=== PATIENT | female | born 1970 | race Caucasian/White ===

== ENCOUNTER 2016-11-06 12:36 | Emergency (ER) | payer OTHER ==
[~2016-11-06] VITALS: Ht 165.1 cm; Wt 84.1 kg
[~2016-11-06 12:36] MED LIST: ALPR0.5T8 PO; HYDR25TA PO; TRAZ150T85 PO; VENL25TA47 PO
[2016-11-06] MEDS ORDERED: METF500T4 PO (12:44)
[2016-11-06 12:52] LABS: GLUCOSE,POINT OF CARE 104 MG/DL (70-110)
[2016-11-06] MEDS ORDERED: HYDROCODONE/ACETAMINOPHEN 10-325 MG TABLET PO ONE (13:45)
[2016-11-06 15:11] VITALS: BP 129/79
== END 2016-11-06 15:32 | disposition home or self-care (01) ==
LOC: EMS 12:37
DX: S73.102A Unspecified sprain of left hip, initial encounter (principal); M79.89 Other specified soft tissue disorders; I10 Essential (primary) hypertension; E11.9 Type 2 diabetes mellitus without complications; F17.210 Nicotine dependence, cigarettes, uncomplicated; X58.XXXA Exposure to other specified factors, initial encounter; Y93.89 Activity, other specified; Y92.89 Other specified places as the place of occurrence of the external cause; Y99.8 Other external cause status
CPT/HCPCS: 73503; 82962; 93970; 99284

== ENCOUNTER 2016-12-10 08:09 | Emergency (ER) | payer OTHER ==
[~2016-12-10] VITALS: Ht 165.1 cm; Wt 83.5 kg
[~2016-12-10 08:09] MED LIST changes: +METF500T4 PO
[2016-12-10] MEDS ORDERED: MEDR4 PO (08:15)
[2016-12-10 08:22] LABS: GLUCOSE,POINT OF CARE 152 MG/DL (70-110)
[2016-12-10 08:28] VITALS: BP 135/84
[2016-12-10] MEDS ORDERED: OxyCODONE HCL/ACETAMINOPHEN 5-325 MG TABLET PO ONE (09:00)
== END 2016-12-10 09:07 | disposition home or self-care (01) ==
LOC: EMS 08:10
DX: M54.16 Radiculopathy, lumbar region (principal); F31.9 Bipolar disorder, unspecified; I10 Essential (primary) hypertension; E11.9 Type 2 diabetes mellitus without complications; F20.9 Schizophrenia, unspecified; F41.9 Anxiety disorder, unspecified; F17.210 Nicotine dependence, cigarettes, uncomplicated
CPT/HCPCS: 82962; 99283; 99406

== ENCOUNTER 2017-12-30 15:18 | Emergency (ER) | payer OTHER ==
[~2017-12-30] VITALS: Ht 165.1 cm; Wt 81.4 kg
[~2017-12-30 15:18] MED LIST changes: +MEDR4 PO; -METF500T4 PO; +METF500T6 PO; +TRAZ150T79 PO; -TRAZ150T85 PO
[2017-12-30 15:24] VITALS: BP 144/86
[2017-12-30 15:34] LABS: GLUCOSE,POINT OF CARE 144 MG/DL (70-110)
== END 2017-12-30 17:05 | disposition left against medical advice (07) ==
LOC: EMS 15:19
DX: M54.5 Low back pain (principal); R22.0 Localized swelling, mass and lump, head; F31.9 Bipolar disorder, unspecified; F41.9 Anxiety disorder, unspecified; E11.9 Type 2 diabetes mellitus without complications; F20.9 Schizophrenia, unspecified; F17.210 Nicotine dependence, cigarettes, uncomplicated; Z53.21 Procedure and treatment not carried out due to patient leaving prior to being seen by health care provider

== ENCOUNTER 2018-02-28 22:19 | Emergency (ER) | payer OTHER ==
[~2018-02-28] VITALS: Ht 165.1 cm; Wt 81.4 kg
[~2018-02-28 22:19] MED LIST changes: -MEDR4 PO; -METF500T6 PO
[2018-02-28] MEDS ORDERED: METF-960 PO (22:28)
[2018-02-28] MEDS ORDERED: PERCT10 PO (22:28)
[2018-02-28 22:33] LABS: GLUCOSE,POINT OF CARE 110 MG/DL (70-110)
[2018-03-01] MEDS ORDERED: CefTRIAXone SODIUM 1 GM/VIAL IM ONE (01:00)
[2018-03-01] MEDS ORDERED: KETOROLAC TROMETHAMINE 60 MG/2 ML VIAL IM ONE (01:00)
[2018-03-01] MEDS ORDERED: LIDOCAINE/PF 1% 2 ML VIAL IM ONE (01:00)
[2018-03-01 01:15] VITALS: BP 130/74
== END 2018-03-01 01:15 | disposition home or self-care (01) ==
LOC: EMS 22:21
DX: L02.412 Cutaneous abscess of left axilla (principal); M54.42 Lumbago with sciatica, left side; F41.9 Anxiety disorder, unspecified; F31.9 Bipolar disorder, unspecified; E11.9 Type 2 diabetes mellitus without complications; I10 Essential (primary) hypertension; F20.9 Schizophrenia, unspecified; F17.210 Nicotine dependence, cigarettes, uncomplicated; Z90.49 Acquired absence of other specified parts of digestive tract; Z90.710 Acquired absence of both cervix and uterus; Z98.51 Tubal ligation status; Z79.84 Long term (current) use of oral hypoglycemic drugs
CPT/HCPCS: 82962; 99283; J0696; J1885; J3490; 99284

== ENCOUNTER 2018-12-19 14:37 | Emergency (ER) | payer OTHER ==
[~2018-12-19] VITALS: Ht 165.1 cm; Wt 90.9 kg
[~2018-12-19 14:37] MED LIST changes: +METF-960 PO; +PERCT10 PO; -TRAZ150T79 PO
[2018-12-19] MEDS ORDERED: LISI-661 PO (14:47)
[2018-12-19] MEDS ORDERED: ASPI81TA39 PO (14:47)
[2018-12-19 16:15] LABS: BASOPHILS % (AUTO) 0.5 % (0.0-2.0); EOSINOPHILS % (AUTO) 1.9 % (1.0-6.0); HEMATOCRIT 42.2 % (36-46); HEMOGLOBIN 13.6 g/dL (12.0-16.0); LYMPHOCYTES # (AUTO) 2.9 K/uL (1.0-4.8); LYMPHOCYTES % (AUTO) 38.9 % (22.0-44.0); MEAN CORPUSCULAR HEMOGLOBIN 28.9 pg (26.0-34.0); MEAN CORPUSCULAR HGB CONC 32.3 G/dL (31.0-37.0); MEAN CORPUSCULAR VOLUME 90 fL (80-100); MONOCYTES # (AUTO) 0.5 K/uL (0.1-1.0); MONOCYTES % (AUTO) 7.1 % (2.0-9.0); NEUTROPHILS # (AUTO) 3.9 K/uL (1.8-7.7); NEUTROPHILS % (AUTO) 51.6 % (40.0-70.0); PLATELET COUNT (AUTO) 258 K/uL (150-450); RED BLOOD CELL COUNT(AUTO) 4.72 MIL/uL (4.00-5.20); RED CELL DISTRIBUTION WIDTH 14.7 % (11.5-14.5)
[2018-12-19 16:28] LABS: ANION GAP 12 mmol/L (8-16); CARBON DIOXIDE 24 mmol/L (22-29); CHLORIDE 103 mmol/L (98-107); CREATININE 1.18 mg/dL (0.60-1.30); GLOMERULAR FILTR. RATE CALC 49 mL/min (>60); GLUCOSE,RANDOM 121 mg/dL (70-110); POTASSIUM 3.3 mmol/L (3.5-5.1); SODIUM SERUM 139 mmol/L (136-145); UREA NITROGEN, BLOOD 11 mg/dL (7-18)
[2018-12-19 16:33] LABS: ALANINE AMINOTRANSFERASE 22 U/L (12-78); ALBUMIN 3.3 g/dL (3.4-5.0); ALKALINE PHOSPHATASE 80 U/L (46-116); ASPARTATE AMINOTRANSFERASE 26 U/L (15-37); BILIRUBIN,TOTAL 0.2 mg/dL (0.1-1.0); TOTAL PROTEIN, SERUM 6.7 g/dL (6.4-8.2)
[2018-12-19 16:45] LABS: B-TYPE NATRIURETIC PEPTIDE < 5 pg/mL (0-100)
[2018-12-19 17:10] LABS: GLUCOSE,POINT OF CARE 127 MG/DL (70-110)
[2018-12-19] MEDS ORDERED: POTASSIUM CHLORIDE 20 MEQ ER TABLET PO ONE (17:30)
[2018-12-19] MEDS ORDERED: KETOROLAC TROMETHAMINE 30 MG/ML VIAL IM ONE (17:30)
[2018-12-19] MEDS ORDERED: ALPR1TAB7 PO (17:33)
[2018-12-19 17:52] VITALS: BP 118/87
== END 2018-12-19 17:55 | disposition home or self-care (01) ==
LOC: EMS 14:37
DX: R60.0 Localized edema (principal); E87.6 Hypokalemia; M79.661 Pain in right lower leg; M79.662 Pain in left lower leg; I10 Essential (primary) hypertension; E11.9 Type 2 diabetes mellitus without complications; F31.9 Bipolar disorder, unspecified; F20.9 Schizophrenia, unspecified; F41.9 Anxiety disorder, unspecified; F17.210 Nicotine dependence, cigarettes, uncomplicated; Z79.82 Long term (current) use of aspirin; Z79.84 Long term (current) use of oral hypoglycemic drugs; Z79.899 Other long term (current) drug therapy
CPT/HCPCS: 36415; 80053; 82962; 83880; 85025; 93970; 96372; 99284; 99406; J1885

== ENCOUNTER 2020-05-12 08:07 | Emergency (ER) | payer OTHER ==
[~2020-05-12] VITALS: Ht 175.3 cm; Wt 100.0 kg
[~2020-05-12 08:07] MED LIST changes: -ALPR0.5T8 PO; +ALPR1TAB7 PO; +ASPI81TA39 PO; +HYDR-1475 PO; -HYDR25TA PO; +LISI-661 PO; -PERCT10 PO; -VENL25TA47 PO
[2020-05-12 09:47] LABS: BASOPHILS % (AUTO) 0.2 % (0.0-2.0); HEMATOCRIT 39.8 % (36-46); HEMOGLOBIN 12.8 g/dL (12.0-16.0); LYMPHOCYTES # (AUTO) 3.2 K/uL (1.0-4.8); LYMPHOCYTES % (AUTO) 43.4 % (22.0-44.0); MEAN CORPUSCULAR HEMOGLOBIN 29.1 pg (26.0-34.0); MEAN CORPUSCULAR HGB CONC 32.2 G/dL (31.0-37.0); MEAN CORPUSCULAR VOLUME 90 fL (80-100); MONOCYTES # (AUTO) 0.4 K/uL (0.1-1.0); MONOCYTES % (AUTO) 5.2 % (2.0-9.0); NEUTROPHILS # (AUTO) 3.6 K/uL (1.8-7.7); NEUTROPHILS % (AUTO) 49.2 % (40.0-70.0); PLATELET COUNT (AUTO) 244 K/uL (150-450); RED BLOOD CELL COUNT(AUTO) 4.41 MIL/uL (4.00-5.20); RED CELL DISTRIBUTION WIDTH 14.3 % (11.5-14.5)
[2020-05-12 10:03] LABS: ANION GAP 3 mmol/L (8-16); CALCIUM, TOTAL 8.4 mg/dL (8.8-10.5); CARBON DIOXIDE 26 mmol/L (22-29); CHLORIDE 107 mmol/L (98-107); CREATININE 0.85 mg/dL (0.60-1.30); GLOMERULAR FILTR. RATE CALC > 60 mL/min (>60); GLUCOSE,RANDOM 128 mg/dL (70-110); POTASSIUM 3.8 mmol/L (3.5-5.1); SODIUM SERUM 136 mmol/L (136-145); UREA NITROGEN, BLOOD 6 mg/dL (7-18)
[2020-05-12 10:07] LABS: ALANINE AMINOTRANSFERASE 17 U/L (12-78); ALKALINE PHOSPHATASE 79 U/L (46-116); ASPARTATE AMINOTRANSFERASE 13 U/L (15-37); BILIRUBIN,TOTAL 0.2 mg/dL (0.1-1.0); TOTAL PROTEIN, SERUM 6.7 g/dL (6.4-8.2)
[2020-05-12 10:10] LABS: B-TYPE NATRIURETIC PEPTIDE 6 pg/mL (0-100)
[2020-05-12 10:33] VITALS: BP 128/89
== END 2020-05-12 11:13 | disposition home or self-care (01) ==
LOC: EMS 08:09
DX: R60.0 Localized edema (principal); F41.9 Anxiety disorder, unspecified; I10 Essential (primary) hypertension; E11.319 Type 2 diabetes mellitus with unspecified diabetic retinopathy without macular edema; F17.210 Nicotine dependence, cigarettes, uncomplicated; F12.90 Cannabis use, unspecified, uncomplicated; Z90.49 Acquired absence of other specified parts of digestive tract; Z90.710 Acquired absence of both cervix and uterus
CPT/HCPCS: 93970

== ENCOUNTER 2020-05-31 13:31 | Emergency (ER) | payer OTHER ==
[~2020-05-31] VITALS: Ht 167.6 cm; Wt 92.7 kg
[~2020-05-31 13:31] MED LIST changes: -METF-960 PO
[2020-05-31 14:45] LABS: BASOPHILS % (AUTO) 0.7 % (0.0-2.0); EOSINOPHILS % (AUTO) 3.1 % (1.0-6.0); HEMATOCRIT 41.4 % (36-46); HEMOGLOBIN 13.5 g/dL (12.0-16.0); LYMPHOCYTES # (AUTO) 2.8 K/uL (1.0-4.8); LYMPHOCYTES % (AUTO) 39.3 % (22.0-44.0); MEAN CORPUSCULAR HEMOGLOBIN 29.2 pg (26.0-34.0); MEAN CORPUSCULAR HGB CONC 32.5 G/dL (31.0-37.0); MEAN CORPUSCULAR VOLUME 90 fL (80-100); MONOCYTES # (AUTO) 0.4 K/uL (0.1-1.0); NEUTROPHILS # (AUTO) 3.6 K/uL (1.8-7.7); NEUTROPHILS % (AUTO) 50.9 % (40.0-70.0); PLATELET COUNT (AUTO) 284 K/uL (150-450); RED BLOOD CELL COUNT(AUTO) 4.61 MIL/uL (4.00-5.20)
[2020-05-31 14:55] LABS: ANION GAP 8 mmol/L (8-16); CALCIUM, TOTAL 8.7 mg/dL (8.8-10.5); CARBON DIOXIDE 27 mmol/L (22-29); CHLORIDE 108 mmol/L (98-107); GLOMERULAR FILTR. RATE CALC > 60 mL/min (>60); GLUCOSE,RANDOM 85 mg/dL (70-110); POTASSIUM 3.6 mmol/L (3.5-5.1); SODIUM SERUM 143 mmol/L (136-145); UREA NITROGEN, BLOOD 9 mg/dL (7-18)
[2020-05-31 15:08] LABS: ALANINE AMINOTRANSFERASE 18 U/L (12-78); ALBUMIN 2.9 g/dL (3.4-5.0); ALKALINE PHOSPHATASE 66 U/L (46-116); ASPARTATE AMINOTRANSFERASE 10 U/L (15-37); BILIRUBIN,TOTAL 0.2 mg/dL (0.1-1.0); TOTAL PROTEIN, SERUM 6.4 g/dL (6.4-8.2)
[2020-05-31 17:45] VITALS: BP 124/88
== END 2020-05-31 18:00 | disposition home or self-care (01) ==
LOC: EMS 13:33
DX: F41.9 Anxiety disorder, unspecified (principal); R06.02 Shortness of breath; R53.1 Weakness; F31.9 Bipolar disorder, unspecified; F20.9 Schizophrenia, unspecified; I10 Essential (primary) hypertension; E11.9 Type 2 diabetes mellitus without complications; F17.210 Nicotine dependence, cigarettes, uncomplicated; F12.90 Cannabis use, unspecified, uncomplicated; Z90.710 Acquired absence of both cervix and uterus; Z90.89 Acquired absence of other organs
CPT/HCPCS: 93005; 36415-L1; 36415-TC; 71045-TC

== ENCOUNTER 2020-10-21 17:40 | Emergency (ER) | payer OTHER ==
[~2020-10-21] VITALS: Ht 165.1 cm; Wt 90.9 kg
[~2020-10-21 17:40] MED LIST changes: -HYDR-1475 PO; +HYDR25TA2 PO; -LISI-661 PO; +LISI-893 PO
[2020-10-21 19:02] LABS: ANION GAP 4 mmol/L (8-16); CALCIUM, TOTAL 8.9 mg/dL (8.8-10.5); CARBON DIOXIDE 30 mmol/L (22-29); CHLORIDE 106 mmol/L (98-107); CREATININE 0.94 mg/dL (0.60-1.30); GLOMERULAR FILTR. RATE CALC > 60 mL/min (>60); GLUCOSE,RANDOM 108 mg/dL (70-110); POTASSIUM 3.8 mmol/L (3.5-5.1); SODIUM SERUM 140 mmol/L (136-145); UREA NITROGEN, BLOOD 11 mg/dL (7-18)
[2020-10-21 19:03] LABS: BASOPHILS % (AUTO) 0.5 % (0.0-2.0); EOSINOPHILS % (AUTO) 2.7 % (1.0-6.0); HEMATOCRIT 40.6 % (36-46); HEMOGLOBIN 13.4 g/dL (12.0-16.0); LYMPHOCYTES # (AUTO) 2.9 K/uL (1.0-4.8); LYMPHOCYTES % (AUTO) 44.6 % (22.0-44.0); MEAN CORPUSCULAR HEMOGLOBIN 29.2 pg (26.0-34.0); MEAN CORPUSCULAR VOLUME 89 fL (80-100); MONOCYTES # (AUTO) 0.5 K/uL (0.1-1.0); MONOCYTES % (AUTO) 8.4 % (2.0-9.0); NEUTROPHILS # (AUTO) 2.9 K/uL (1.8-7.7); NEUTROPHILS % (AUTO) 43.8 % (40.0-70.0); PLATELET COUNT (AUTO) 253 K/uL (150-450); RED BLOOD CELL COUNT(AUTO) 4.58 MIL/uL (4.00-5.20); RED CELL DISTRIBUTION WIDTH 15.2 % (11.5-14.5)
[2020-10-21 19:08] LABS: ALANINE AMINOTRANSFERASE 27 U/L (12-78); ALBUMIN 3.2 g/dL (3.4-5.0); ALKALINE PHOSPHATASE 90 U/L (46-116); ASPARTATE AMINOTRANSFERASE 15 U/L (15-37); BILIRUBIN,TOTAL 0.2 mg/dL (0.1-1.0); TOTAL PROTEIN, SERUM 7.1 g/dL (6.4-8.2)
[2020-10-21 21:05] VITALS: BP 130/87
== END 2020-10-21 21:16 | disposition home or self-care (01) ==
LOC: EMS 17:44
DX: F41.9 Anxiety disorder, unspecified (principal); R60.0 Localized edema
CPT/HCPCS: 71045; 80053; 84484; 85025; 85379; 93005; 99285; 36415-L1; 36415-TC

== ENCOUNTER 2021-02-06 09:25 | Emergency (ER) | payer OTHER ==
[~2021-02-06] VITALS: Ht 165.1 cm; Wt 80.9 kg
[2021-02-06 09:47] VITALS: BP 127/84
== END 2021-02-06 10:20 | disposition home or self-care (01) ==
LOC: EMS 09:33
DX: H60.93 Unspecified otitis externa, bilateral (principal); R51.9 Headache, unspecified; R42 Dizziness and giddiness; F41.9 Anxiety disorder, unspecified; I11.0 Hypertensive heart disease with heart failure; I50.9 Heart failure, unspecified; Z90.710 Acquired absence of both cervix and uterus; Z79.899 Other long term (current) drug therapy
CPT/HCPCS: 99283

== ENCOUNTER 2021-11-05 03:29 | Emergency (ER) | payer OTHER ==
[~2021-11-05] VITALS: Ht 175.3 cm; Wt 100.0 kg
[~2021-11-05 03:29] MED LIST changes: +ALPR-709 PO; -ALPR1TAB7 PO; +HYDR-4870 PO; -HYDR25TA2 PO
[2021-11-05 03:32] VITALS: BP 155/105
[2021-11-05] MEDS ORDERED: AMOX1TAB16 PO ×2 (04:28→14:01)
[2021-11-05] MEDS ORDERED: IBUPROFEN 400 MG TABLET PO ONE (04:30)
[2021-11-05] MEDS ORDERED: OxyCODONE HCL/ACETAMINOPHEN 5-325 MG TABLET PO ONE (04:30)
[2021-11-05] MEDS ORDERED: AMPICILLIN SODIUM/SULBACTAM NA 3 GM/VIAL IM ONE (04:30)
[2021-11-05] MEDS ORDERED: AMPICILLIN SODIUM/SULBACTAM NA 1.5 GM/VIAL IM ONE (04:30)
== END 2021-11-05 04:50 | disposition home or self-care (01) ==
LOC: EMS 03:31
DX: K02.9 Dental caries, unspecified (principal); S02.5XXA Fracture of tooth (traumatic), initial encounter for closed fracture; I11.0 Hypertensive heart disease with heart failure; I50.9 Heart failure, unspecified; E11.9 Type 2 diabetes mellitus without complications; L40.9 Psoriasis, unspecified; F41.0 Panic disorder [episodic paroxysmal anxiety]; E11.319 Type 2 diabetes mellitus with unspecified diabetic retinopathy without macular edema; Z90.710 Acquired absence of both cervix and uterus; Z98.890 Other specified postprocedural states; X58.XXXA Exposure to other specified factors, initial encounter; Y93.89 Activity, other specified; Y92.89 Other specified places as the place of occurrence of the external cause; Y99.8 Other external cause status
CPT/HCPCS: 96372; 99283; J0295

== ENCOUNTER 2022-02-15 11:00 | Emergency (ER) | payer OTHER ==
[~2022-02-15] VITALS: Ht 167.6 cm; Wt 75.0 kg
[~2022-02-15 11:00] MED LIST changes: +AMOX1TAB16 PO; -HYDR-4870 PO; +HYDR25TA2 PO
[2022-02-15 11:14] VITALS: BP 147/106
[2022-02-15 11:25] LABS: GLUCOMETER DEV NAME(LOC) ERT.5; GLUCOSE,POINT OF CARE 90 MG/DL (70-110)
[2022-02-15] MEDS ORDERED: DOXY-354 PO (12:14)
[2022-02-15] MEDS ORDERED: DOXYCYCLINE HYCLATE 100 MG TABLET PO ONE (12:15)
[2022-02-15] MEDS ORDERED: ACETAMINOPHEN 500 MG TABLET PO ONE (12:15)
[2022-02-15] MEDS ORDERED: KETOROLAC TROMETHAMINE 30 MG/ML VIAL IM ONE (12:15)
[2022-02-15] MEDS ORDERED: ACET-3385 PO (13:27)
[2022-02-15] MEDS ORDERED: IBUP-2070 PO (13:27)
== END 2022-02-15 12:25 | disposition home or self-care (01) ==
LOC: EMS 11:00
DX: L02.31 Cutaneous abscess of buttock (principal); I10 Essential (primary) hypertension; E11.319 Type 2 diabetes mellitus with unspecified diabetic retinopathy without macular edema; L40.9 Psoriasis, unspecified; F17.210 Nicotine dependence, cigarettes, uncomplicated; F12.90 Cannabis use, unspecified, uncomplicated; Z98.890 Other specified postprocedural states; Z90.49 Acquired absence of other specified parts of digestive tract; Z90.710 Acquired absence of both cervix and uterus
CPT/HCPCS: 99283; 82962; 96372; J1885

== ENCOUNTER 2022-03-02 18:36 | Emergency (ER) | payer OTHER ==
[~2022-03-02] VITALS: Ht 165.1 cm; Wt 77.3 kg
[~2022-03-02 18:36] MED LIST changes: +ACET-3385 PO; -AMOX1TAB16 PO; +DOXY-354 PO; +IBUP-2070 PO
[2022-03-02] MEDS ORDERED: FURO20 PO (19:05)
[2022-03-02] MEDS ORDERED: MAG HYDROX/AL HYDROX/SIMETH 30 ML SUSP UDCUP PO ONE (19:15)
[2022-03-02] MEDS ORDERED: FAMOTIDINE 10 MG/ML 2 ML VIAL IVP ONE (19:15)
[2022-03-02] MEDS ORDERED: KETOROLAC TROMETHAMINE 30 MG/ML VIAL IVP ONE (19:15)
[2022-03-02] MEDS ORDERED: ONDANSETRON HCL 4 MG/2 ML VIAL IVP ONE (19:15)
[2022-03-02] MEDS ORDERED: IOHEXOL 300 MG/ML 100 ML VIAL ONE (19:30)
[2022-03-02] MEDS ORDERED: SODIUM CHLORIDE 0.9% 100 ML ONE (19:30)
[2022-03-02 19:36] LABS: BASOPHILS % (AUTO) 0.3 % (0.0-2.0); EOSINOPHILS % (AUTO) 0.9 % (1.0-6.0); LYMPHOCYTES # (AUTO) 1.7 K/uL (1.0-4.8); LYMPHOCYTES % (AUTO) 23.6 % (22.0-44.0); MEAN CORPUSCULAR HEMOGLOBIN 28.8 pg (26.0-34.0); MEAN CORPUSCULAR HGB CONC 32.5 G/dL (31.0-37.0); MEAN CORPUSCULAR VOLUME 89 fL (80-100); MONOCYTES # (AUTO) 0.5 K/uL (0.1-1.0); MONOCYTES % (AUTO) 6.3 % (2.0-9.0); NEUTROPHILS # (AUTO) 4.9 K/uL (1.8-7.7); NEUTROPHILS % (AUTO) 68.9 % (40.0-70.0); PLATELET COUNT (AUTO) 236 K/uL (150-450); RED BLOOD CELL COUNT(AUTO) 4.52 MIL/uL (4.00-5.20); RED CELL DISTRIBUTION WIDTH 14.7 % (11.5-14.5)
[2022-03-02 19:44] LABS: ANION GAP 7 mmol/L (8-16); CALCIUM, TOTAL 8.2 mg/dL (8.8-10.5); CARBON DIOXIDE 26 mmol/L (22-29); CHLORIDE 103 mmol/L (98-107); CREATININE 0.82 mg/dL (0.60-1.30); GLUCOSE,RANDOM 88 mg/dL (70-110); POTASSIUM 3.5 mmol/L (3.5-5.1); SODIUM SERUM 136 mmol/L (136-145); UREA NITROGEN, BLOOD 8 mg/dL (7-18)
[2022-03-02 19:45] LABS: GLOMERULAR FILTR. RATE CALC > 60 mL/min (>60)
[2022-03-02 19:49] LABS: ALANINE AMINOTRANSFERASE 37 U/L (12-78); ALBUMIN 2.9 g/dL (3.4-5.0); ALKALINE PHOSPHATASE 94 U/L (46-116); ASPARTATE AMINOTRANSFERASE 22 U/L (15-37); BILIRUBIN,TOTAL 0.3 mg/dL (0.1-1.0); LIPASE 595 U/L (73-393); TOTAL PROTEIN, SERUM 6.4 g/dL (6.4-8.2)
[2022-03-02 19:51] LABS: COVID AG,FIA SOURCE NASOPHARYNGEAL
[2022-03-02 20:10] LABS: INFLUENZA TYPE A NEGATIVE FOR TYPE A (NEGATIVE); INFLUENZA TYPE B NEGATIVE FOR TYPE B (NEGATIVE)
[2022-03-02] MEDS ORDERED: MORPHINE SULFATE 2 MG/ML SYRINGE IVP ONE (20:45)
[2022-03-02 22:13] VITALS: BP 152/96
== END 2022-03-02 22:27 | disposition home or self-care (01) ==
LOC: EMS 18:37
DX: K52.9 Noninfective gastroenteritis and colitis, unspecified (principal); E11.319 Type 2 diabetes mellitus with unspecified diabetic retinopathy without macular edema; I10 Essential (primary) hypertension; L40.9 Psoriasis, unspecified; F17.210 Nicotine dependence, cigarettes, uncomplicated; F12.90 Cannabis use, unspecified, uncomplicated; Z90.49 Acquired absence of other specified parts of digestive tract; Z90.710 Acquired absence of both cervix and uterus; Z91.038 Other insect allergy status; Z20.822 Contact with and (suspected) exposure to COVID-19
CPT/HCPCS: 99285; 74177; 96374; 96375; 87426; 80053; 83690; 85025; 87804; 36415; J3490; J1885; J2270; J2405; J7050; Q9967; 99284

== ENCOUNTER 2023-06-02 15:54 | Emergency (ER) | payer OTHER ==
[~2023-06-02] VITALS: Ht 165.1 cm; Wt 86.4 kg
[~2023-06-02 15:54] MED LIST changes: -ACET-3385 PO; -ALPR-709 PO; -DOXY-354 PO; +FURO20 PO; -HYDR25TA2 PO; -IBUP-2070 PO
[2023-06-02 16:27] LABS: COVID AG,FIA SOURCE NASAL SWAB
[2023-06-02 16:58] LABS: INFLUENZA TYPE A NEGATIVE FOR TYPE A (NEGATIVE); INFLUENZA TYPE B NEGATIVE FOR TYPE B (NEGATIVE); SARS-COV2 (COVID) ANTIGEN,FIA Negative (Negative)
[2023-06-02 17:22] VITALS: TEMP 98.3
[2023-06-02] MEDS ORDERED: ONDA-104 PO (18:58)
[2023-06-02] MEDS ORDERED: PSEU-191 PO (18:58)
[2023-06-02 18:59] VITALS: BP 151/97; PULSE 99; RESP 18
[2023-06-02] MEDS ORDERED: BENZ-227 PO (20:16)
== END 2023-06-02 19:03 | disposition home or self-care (01) ==
LOC: EMS 16:01
DX: J06.9 Acute upper respiratory infection, unspecified (principal); E11.9 Type 2 diabetes mellitus without complications; F17.210 Nicotine dependence, cigarettes, uncomplicated; F12.90 Cannabis use, unspecified, uncomplicated; I11.0 Hypertensive heart disease with heart failure; I50.9 Heart failure, unspecified; Z91.040 Latex allergy status; Z20.822 Contact with and (suspected) exposure to COVID-19
CPT/HCPCS: 71045; 87804; 99284

== ENCOUNTER 2024-03-01 13:53 | Emergency (ER) | payer OTHER ==
[~2024-03-01] VITALS: Ht 167.6 cm; Wt 77.0 kg
[~2024-03-01 13:53] MED LIST changes: +ATOR20TA PO; +CARV6 PO; +FLUO-418 PO; -FURO20 PO; -LISI-893 PO
[2024-03-01 13:56] VITALS: TEMP 98.5
[2024-03-01] MEDS ORDERED: FURO40TA6 PO (13:59)
[2024-03-01] MEDS ORDERED: LISI-893 PO (13:59)
[2024-03-01] MEDS ORDERED: HYDR25TA2 PO (13:59)
[2024-03-01] MEDS ORDERED: AMOX-457 PO (15:11)
[2024-03-01 15:25] VITALS: BP 120/68; PULSE 82; RESP 18; O2SAT 98
[2024-03-01] MEDS: BACITRACIN 28 GM OINTMENT TP ONE (15:27)
== END 2024-03-01 15:34 | disposition home or self-care (01) ==
LOC: EMS 13:53
DX: S51.851A Open bite of right forearm, initial encounter (principal); I11.0 Hypertensive heart disease with heart failure; E11.319 Type 2 diabetes mellitus with unspecified diabetic retinopathy without macular edema; F12.90 Cannabis use, unspecified, uncomplicated; F17.210 Nicotine dependence, cigarettes, uncomplicated; Z90.710 Acquired absence of both cervix and uterus; Z90.49 Acquired absence of other specified parts of digestive tract; Z91.030 Bee allergy status; Z98.890 Other specified postprocedural states; W54.0XXA Bitten by dog, initial encounter; Y93.89 Activity, other specified; Y92.89 Other specified places as the place of occurrence of the external cause; Y99.8 Other external cause status
CPT/HCPCS: 99283

== ENCOUNTER 2024-03-31 16:28 | Emergency (ER) | payer OTHER ==
[~2024-03-31] VITALS: Ht 167.6 cm; Wt 84.1 kg
[~2024-03-31 16:28] MED LIST changes: +AMOX-457 PO; -CARV6 PO; +FURO40TA6 PO; +HYDR25TA2 PO; +LISI-893 PO
[2024-03-31 16:31] VITALS: TEMP 98.2
[2024-03-31] MEDS ORDERED: LISI30TA4 PO (16:33)
[2024-03-31] MEDS: ONDANSETRON HCL 4 MG/2 ML VIAL IVP ONE (17:22)
[2024-03-31] MEDS: HYDROGEN PEROXIDE 118 ML SOLUTION TP ONE (17:22)
[2024-03-31] MEDS: HYDROmorphone HCL 2 MG/ML SYRINGE IVP ONE (17:22)
[2024-03-31] MEDS: CefTRIAXone 1 GM/DEXTROSE 50 ML IV ONE (17:32)
[2024-03-31] MEDS: GENTAMICIN SULFATE 160 MG in DEXTROSE 5%-WATER 100 ML IV ONE (17:45)
[2024-03-31 20:00] VITALS: BP 118/65; PULSE 74; RESP 17; O2SAT 98
[2024-03-31] MEDS: HYDROCODONE/ACETAMINOPHEN 5-325 MG TABLET PO ONE (20:55)
[2024-03-31] MEDS ORDERED: AMOX-457 PO (21:01)
[2024-03-31] MEDS ORDERED: BACI28.410 TP (21:01)
[2024-03-31] MEDS ORDERED: HYDR-4062 PO (21:01)
[2024-03-31] MEDS ORDERED: IBUP-1554 PO (21:01)
[2024-03-31] MEDS: BACITRACIN 0.9 GM PACKET OINTMENT TP ONE (21:21)
== END 2024-03-31 21:25 | disposition home or self-care (01) ==
LOC: EMS 16:28
DX: S51.811A Laceration without foreign body of right forearm, initial encounter (principal); S63.502A Unspecified sprain of left wrist, initial encounter; I11.0 Hypertensive heart disease with heart failure; I50.9 Heart failure, unspecified; E11.319 Type 2 diabetes mellitus with unspecified diabetic retinopathy without macular edema; F12.90 Cannabis use, unspecified, uncomplicated; F17.210 Nicotine dependence, cigarettes, uncomplicated; Z91.030 Bee allergy status; Z90.49 Acquired absence of other specified parts of digestive tract; Z90.710 Acquired absence of both cervix and uterus; Z79.899 Other long term (current) drug therapy; W54.0XXA Bitten by dog, initial encounter; Y93.89 Activity, other specified; Y92.89 Other specified places as the place of occurrence of the external cause; Y99.8 Other external cause status
CPT/HCPCS: 99284; 96365; 96375; 73090; 73110; 12001; 96368; J0696; J1171; J2405; J7060; J1580; 29240